=== PATIENT | female | born 1980 | race African-American/Black ===

== ENCOUNTER 2022-01-17 06:47 | Emergency (ER) | payer MEDICAID, OTHER ==
[~2022-01-17] VITALS: Ht 154.9 cm; Wt 58.4 kg
[2022-01-17 08:45] LABS: BASOPHILS % 0.8 % (0.0-2.0); EOSINOPHILS % 1.5 % (0.0-5.0); HEMATOCRIT. 44.6 % (36.0-48.0); HEMOGLOBIN. 15.1 g/dL (12.0-16.0); LYMPHOCYTES % 31.5 % (20.0-50.0); MEAN CORPUSCULAR HEMOGLOBIN 29.5 pg (28.0-32.0); MEAN CORPUSCULAR VOLUME 87.1 fL (81.0-99.0); MEAN PLATELET VOLUME 8.1 fl (7.4-10.4); MONOCYTES % 7.3 % (2.0-8.0); NEUTROPHILS % 58.9 % (40.0-76.0); PLATELET 296 x1000/uL (130-400); RED BLOOD CELL COUNT 5.12 mill/uL (4.2-5.4); RED CELL DISTRIBUTION WIDTH 13.5 % (11.6-14.6)
[2022-01-17] MEDS ORDERED: MORPHINE SULFATE 4 MG/ML CPJ (NOT FOR IM USE) IV ONE (08:45)
[2022-01-17 08:51] LABS: CHLORIDE 112 mEq/L (98-107)
[2022-01-17] MEDS ORDERED: IBUP-2028 PO (11:25)
[2022-01-17] MEDS ORDERED: T3 PO (11:25)
[2022-01-17 11:40] VITALS: BP 125/72
== END 2022-01-17 11:52 | disposition home or self-care (01) ==
LOC: ER 06:47
DX: R07.89 Other chest pain (principal); R20.0 Anesthesia of skin; F12.90 Cannabis use, unspecified, uncomplicated
CPT/HCPCS: 36415; 71045; 80053; 83880; 84484; 85025; 93005; 96374; 99285; J2270; Z7610